=== PATIENT | female | born 1970 | race Caucasian/White ===

== ENCOUNTER 2018-12-30 11:20 | Outpatient (REF) | payer BC, SELFPAY ==
--- NOTE | 2018-12-30 10:15 | PAPFT_PTH ---
PATIENT: Brisa Gonzalez LOC: [facility] U#:[id number] AGE/SX: 48/F ROOM: RE12/30/[address]: MARTI Talavera : 1970 BED: DIS: 12/30/2018 SPEC #: [id number] RECD: 12/30/18 12:50 STATUS: OLIVERIO REElba #: [id number] TOSHIA: 12/30/18 10:[address]: Catie Dumont DEPT: [facility] Cytology RECD BY: Jess Buitrago ENTERED: 12/30/18 12:50 SP TYPE: PAPFT OTHR DR: Tanner Renee Tissues: 1 - CX/ENDOCX FOR PAP SMEARS Procedures: PAP THIN PREP/[facility] Screening Comments: [id number]
[2018-12-31 13:55] LABS: Chlamydia Result Negative; GC Result Negative; Specimen Description CERVIX
== END 2018-12-30 11:40 ==
LOC: LBN 11:20
PROVIDERS: PCP General Practice; Visit Provider Nurse Practitioner Family
DX: Z11.3 Encounter for screening for infections with a predominantly sexual mode of transmission (principal); Z12.4 Encounter for screening for malignant neoplasm of cervix
CPT/HCPCS: 87491; 87591; 88142

== ENCOUNTER 2020-02-09 11:41 | Outpatient (REF) | payer BC, SELFPAY ==
--- NOTE | 2020-02-09 09:15 | PAPFT_PTH ---
PATIENT: Brisa Gonzalez LOC: [facility] U#:[id number] AGE/SX: 49/F ROOM: RE02/09/[address]: MARTI Talavera : 1970 BED: DIS: 02/09/2020 SPEC #: [id number] RECD: 02/09/20 15:50 STATUS: OLIVERIO REElba #: [id number] TOSHIA: 02/09/20 09:[address]: Catie Dumont DEPT: [facility] Cytology RECD BY: Fe Roberson Tissues: 1 - CX/ENDOCX FOR PAP SMEARS Procedures: PAP THIN PREP/[facility] Screening HPV DNA PROBE Comments: [id number]
== END 2020-02-09 12:01 ==
LOC: LBN 11:41
PROVIDERS: PCP General Practice; Visit Provider Nurse Practitioner Family
DX: Z12.4 Encounter for screening for malignant neoplasm of cervix (principal); R87.810 Cervical high risk human papillomavirus (HPV) DNA test positive; Z97.5 Presence of (intrauterine) contraceptive device; Z87.410 Personal history of cervical dysplasia
CPT/HCPCS: 88142; 87624

== ENCOUNTER 2020-03-14 00:57 | Outpatient (CLI) | payer BC, SELFPAY ==
--- NOTE | 2020-03-14 15:15 | DI.MAMMO_ITS ---
EXAM: MG MAMMO SCREENING CLINICAL HISTORY: screening TECHNIQUE: Mammograms were interpreted according to the usual protocol including computer analysis w [employer] CAD system, tomosynthesis and C-view imaging. COMPARISON: FINDINGS: The breasts are heterogeneously dense. No dominant mass or clumped microcalcification is identified in either breast. The current examination is compared with previous examinations including March 2017 and there has been no gross interval change in appearance in comparison with the previous studie s. IMPRESSION: No specific evidence of malignancy at this time. Routine screening examinations are suggested at yea rly intervals in this age group according to the ACS ACR guidelines. BI-RADS Category 1 - Negative Breast Density - Category C - Heterogeneously dense
== END 2020-03-14 01:17 ==
PROVIDERS: PCP Physician Assistant Medical; Visit Provider Nurse Practitioner Family
DX: Z12.31 Encounter for screening mammogram for malignant neoplasm of breast (principal)
CPT/HCPCS: 77063; 77067

== ENCOUNTER 2020-03-14 17:54 | Outpatient (REF) | payer BC, SELFPAY ==
[2020-03-17 00:41] LABS: Chlamydia amplified RNA Negative (Negative); N gonorrhoeae amplified RNA Negative (Negative); Source CERVIX
== END 2020-03-14 18:14 ==
LOC: LBN 17:54
PROVIDERS: PCP Physician Assistant Medical; Visit Provider Nurse Practitioner Family
DX: Z11.3 Encounter for screening for infections with a predominantly sexual mode of transmission (principal)
CPT/HCPCS: 87491; 87591

== ENCOUNTER 2021-04-17 15:55 | Outpatient (REF) | payer BC, SELFPAY ==
--- NOTE | 2021-04-17 13:30 | PAPFT_PTH ---
PATIENT: Brisa Gonzalez LOC: [facility] U#:[id number] AGE/SX: 50/F ROOM: RE04/17/[address]: MARTI Talavera : 1970 BED: DIS: 04/17/2021 SPEC #: [id number] RECD: 04/17/21 18:07 STATUS: OLIVERIO REQ #: [id number] TOSHIA: 04/17/21 13:[address]: Catie Dumont DEPT: [facility] Cytology RECD BY: Jess Buitrago ENTERED: 04/17/21 18:07 SP TYPE: PAPFT OTHR DR: Akira Lopez Tissues: 1 - CX/ENDOCX FOR PAP SMEARS Procedures: PAP THIN PREP/[facility] Screening HPV DNA PROBE Comments: [id number]
== END 2021-04-17 15:56 | disposition home or self-care (01) ==
LOC: LBN 15:55
PROVIDERS: PCP Physician Assistant Medical; Visit Provider Nurse Practitioner Family
DX: Z12.4 Encounter for screening for malignant neoplasm of cervix (principal); Z11.51 Encounter for screening for human papillomavirus (HPV); R87.810 Cervical high risk human papillomavirus (HPV) DNA test positive
CPT/HCPCS: 88142; 87624

== ENCOUNTER 2022-05-24 16:12 | Outpatient (REF) | payer BC, SELFPAY ==
--- NOTE | 2022-05-24 15:30 | PAPFT_PTH ---
PATIENT: Brisa Gonzalez LOC: [facility] U#:[id number] AGE/SX: 52/F ROOM: RE05/24/[address]: Chiara Bhardwaj MD : 1970 BED: DIS: 05/24/2022 SPEC #: [id number] RECD: 05/24/22 17:53 STATUS: OLIVERIO REQ #: [id number] TOSHIA: 05/24/22 15:[address]: Chiara Bhardwaj DEPT: [facility] Cytology RECD BY: Jess Buitrago ENTERED: 05/24/22 17:54 SP TYPE: PAPFT OTHR DR: Akira Lopez Tissues: 1 - CX/ENDOCX FOR PAP SMEARS Procedures: PAP THIN PREP/[facility] Screening HPV DNA PROBE Comments: [id number] (HPV 16 & 18/45)
== END 2022-05-24 16:13 | disposition home or self-care (01) ==
LOC: LBN 16:12
PROVIDERS: PCP Physician Assistant Medical; Visit Provider Obstetrics & Gynecology
DX: Z12.4 Encounter for screening for malignant neoplasm of cervix (principal); Z11.51 Encounter for screening for human papillomavirus (HPV); R87.810 Cervical high risk human papillomavirus (HPV) DNA test positive
CPT/HCPCS: 88142; 87624

== ENCOUNTER 2022-07-09 16:18 | Outpatient (REF) | payer BC, SELFPAY ==
--- NOTE | 2022-07-09 15:00 | ENDO_PTH ---
PATIENT: Brisa Gonzalez LOC: [facility] U#:[id number] AGE/SX: 52/F ROOM: RE07/09/[address]: Penny Wang DO : 1970 BED: DIS: 07/09/2022 SPEC #: [id number] RECD: 07/09/22 17:07 STATUS: OLIVERIO REQ #: [id number] TOSHIA: 07/09/22 15:[address]: Penny Wang DEPT: Surgical Specimen RECD BY: Jess Buitrago ENTERED: 07/09/22 17:08 SP TYPE: Endo OTHR DR: Akira Lopez Tissues: 1 - ENDOCERVICAL BX/CURRETTE 2 - CERVICAL BIOPSY Procedures: GROSS AND MICRO LEVEL 4 Comments: [id number]
== END 2022-07-09 16:19 | disposition home or self-care (01) ==
LOC: LBN 16:18
PROVIDERS: PCP Physician Assistant Medical; Visit Provider Obstetrics & Gynecology
DX: N88.8 Other specified noninflammatory disorders of cervix uteri (principal); R87.810 Cervical high risk human papillomavirus (HPV) DNA test positive; R87.618 Other abnormal cytological findings on specimens from cervix uteri
CPT/HCPCS: 88305

== ENCOUNTER 2022-10-10 10:18 | Outpatient (REF) | payer BC, SELFPAY ==
[2022-10-11 13:36] LABS: Chlamydia Result Negative (Negative); GC Result Negative (Negative)
== END 2022-10-10 10:19 | disposition home or self-care (01) ==
LOC: LBN 10:18
PROVIDERS: PCP Physician Assistant Medical; Visit Provider Obstetrics & Gynecology
DX: N94.89 Other specified conditions associated with female genital organs and menstrual cycle; N76.0 Acute vaginitis
CPT/HCPCS: 87491; 87591

== ENCOUNTER 2023-01-28 14:09 | Outpatient (REF) | payer BC, SELFPAY | END 2023-01-28 14:10 | disposition home or self-care (01) | LOC: LBN 14:09 | PROVIDERS: PCP Physician Assistant Medical; Visit Provider Nurse Practitioner Women's Health | DX: N76.0 Acute vaginitis (principal) | CPT/HCPCS: 87480; 87510; 87660 ==

== ENCOUNTER 2023-08-16 15:23 | Outpatient (REF) | payer BC, SELFPAY ==
--- NOTE | 2023-08-16 14:45 | PAPFT_PTH ---
PATIENT: Brisa Gonzalez LOC: [facility] U#:[id number] AGE/SX: 53/F ROOM: RE08/16/[address]: Penny Wang DO : 1970 BED: DIS: 08/16/2023 SPEC #: [id number] RECD: 08/16/23 17:01 STATUS: OLIVERIO REQ #: [id number] TOSHIA: 08/16/23 14:[address]: Penny Wang DEPT: [facility] Cytology RECD BY: Jess Buitrago ENTERED: 08/16/23 17:02 SP TYPE: PAPFT OTHR DR: Akira Lopez Tissues: 1 - CX/ENDOCX FOR PAP SMEARS Procedures: PAP THIN PREP/[facility] Screening HPV DNA PROBE Comments: [id number] (HPV 16 & 18/45)
== END 2023-08-16 15:24 | disposition home or self-care (01) ==
LOC: LBN 15:23
PROVIDERS: PCP Physician Assistant Medical; Visit Provider Obstetrics & Gynecology
DX: Z12.4 Encounter for screening for malignant neoplasm of cervix (principal); Z11.51 Encounter for screening for human papillomavirus (HPV)
CPT/HCPCS: 88142; 87624

== ENCOUNTER 2024-03-31 09:30 | Outpatient (REF) | payer BC, SELFPAY ==
--- NOTE | 2024-03-31 09:30 | PAPFT_PTH ---
PATIENT: Brisa Gonzalez LOC: [facility] U#:[id number] AGE/SX: 53/F ROOM: RE03/31/[address]: Penny Wang DO : 1970 BED: DIS: 03/31/2024 SPEC #: [id number] RECD: 03/31/24 12:44 STATUS: OLIVERIO REQ #: [id number] TOSHIA: 03/31/24 09:[address]: Penny Wang DEPT: [facility] Cytology RECD BY: Jess Buitrago ENTERED: 03/31/24 12:44 SP TYPE: PAPFT OTHR DR: Akira Lopez Tissues: 1 - CX/ENDOCX FOR PAP SMEARS Procedures: PAP THIN PREP/[facility] Screening HPV DNA PROBE Comments: [id number] (HPV 16 & 18/45)
[2024-04-01 11:18] LABS: Chlamydia Result Negative (Negative); GC Result Negative (Negative)
== END 2024-03-31 09:31 | disposition home or self-care (01) ==
LOC: LBN 09:30
PROVIDERS: PCP Physician Assistant Medical; Visit Provider Obstetrics & Gynecology
DX: A64 Unspecified sexually transmitted disease (principal); Z87.410 Personal history of cervical dysplasia; N77.1 Vaginitis, vulvitis and vulvovaginitis in diseases classified elsewhere
CPT/HCPCS: 87491; 87591; 88142; 87624

== ENCOUNTER 2024-07-01 15:25 | Outpatient (REF) | payer BC, SELFPAY ==
--- NOTE | 2024-07-01 15:00 | ENDO_PTH ---
PATIENT: Brisa Gonzalez LOC: [facility] U#:[id number] AGE/SX: 54/F ROOM: RE07/01/[address]: Penny Wang DO : 1970 BED: DIS: 07/01/2024 SPEC #: [id number] RECD: 07/01/24 16:36 STATUS: OLIVERIO RE #: [id number] TOSHIA: 07/01/24 15:[address]: Penny Wang DEPT: Surgical Specimen RECD BY: Fe Roberson ENTERED: 07/01/24 16:40 SP TYPE: Endo OTHR DR: Akira Lopez Tissues: 1 - ENDOCERVICAL BX/CURRETTE 2 - ENDOCERVICAL BX/CURRETTE Procedures: GROSS AND MICRO LEVEL 4 Comments: [id number]
== END 2024-07-01 15:26 | disposition home or self-care (01) ==
LOC: LBN 15:25
PROVIDERS: PCP Physician Assistant Medical; Visit Provider Obstetrics & Gynecology
DX: D26.0 Other benign neoplasm of cervix uteri (principal); L85.8 Other specified epidermal thickening; Z87.410 Personal history of cervical dysplasia
CPT/HCPCS: 88305